=== PATIENT | female | born 1970 | race Caucasian/White ===

== ENCOUNTER 2018-08-23 11:11 | Inpatient (IN) ==
[2018-08-23 12:08] LABS: URINE SOURCE CATH
[2018-08-23 12:10] LABS: ALLEN TEST YES; BE 2.2 mmoll (-3.0-3.0); BLOOD TYPE ARTERIAL; HCO3-(ACT) 26.5 mmoll (20.0-26.0); METHB 0.9 % (0.0-1.5); O2(CT) 20.2 mL/dL (15.0-23.0); PO2(98.6) 97 mmHg (60-100); SAMPLE BLOOD; SAO2 97.9 % (95.0-100.0); THB 15.2 g/dL (11.5-17.4); pH(98.6) 7.36 (7.35-7.45)
[2018-08-23 12:13] LABS: BASO# 0.05 X1000 (0.0-0.2); BASO% 0.5 % (0.0-0.8); EOS# 0.07 X1000 (0.0-0.7); EOS% 0.6 % (0.0-10.0); HEMATOCRIT 44.1 % (37.0-47.0); IMM GRAN# 0.02 X1000 (0.0-0.04); IMM GRAN% 0.2 % (0.0-0.5); LYMPH# 2.73 X1000 (1.2-3.4); LYMPH% 24.8 % (20.5-51.1); MCV 91.1 FL (81-99); MONO% 8.2 % (1.7-9.3); NEUT# 7.26 X1000 (1.4-6.5); NEUT% 65.7 % (42.2-75.2); PLT 276 X1000 (130-400); RBC 4.84 XMIL (4.2-5.4); RDW 13.7 % (11.5-14.5); WBC 11.03 X1000 (4.8-10.8)
[2018-08-23 12:14] LABS: MODALITY CANNULA; PCO2(98.6) 51 mmHg (35-45)
[2018-08-23 12:15] LABS: BILIRUBIN URINE NEGATIVE (NEGATIVE); BLOOD URINE TRACE (NEGATIVE); COLOR YELLOW; GLUCOSE URINE 200 mg/dL (NEGATIVE); KETONE URINE NEGATIVE (NEGATIVE); LEUKOCYTES URINE NEGATIVE (NEGATIVE); NITRITE URINE NEGATIVE (NEGATIVE); PROTEIN URINE NEGATIVE (NEGATIVE); SP GRAVITY URINE 1.005; TURBIDITY URINE CLEAR (CLEAR); UROBILINOGEN URINE NORMAL (NORMAL)
[2018-08-23 12:16] LABS: UR EPITHELIAL CELLS <10 /HPF (<10); URINE BACTERIA NEGATIVE /HPF; URINE RBC <10 /HPF (<10); URINE WBC <10 /HPF (<10)
[2018-08-23 12:29] LABS: AGAP 10; ALB/GLOB RATIO 2.1; ALBUMIN 4.7 g/dL (3.5-5.0); ALKALINE PHOSPHATASE 64 U/L (32-104); BUN 9 mg/dL (8-22); CALCIUM 9.7 mg/dL (8.8-10.2); CHLORIDE 102 mmol/L (98-107); COSMO 283; CREATININE 0.7 mg/dL (0.5-0.9); ESTIMATED GFR > 60; GLUCOSE 218 mg/dL (70-104); GOT 17 U/L (10-30); GPT 16 U/L (10-36); POTASSIUM 4.1 mmol/L (3.5-5.1); SODIUM 139 mmol/L (136-145); TCO2 27 mmol/L (25-35); TOTAL BILIRUBIN 0.24 mg/dL (0.20-1.00); TOTAL PROTEIN 6.9 g/dL (6.3-8.3)
[2018-08-23 12:32] LABS: UR AMPHETAMINES QUAL NONE DETECTED (NONE DETECT); UR BARBITUATES QUAL NONE DETECTED (NONE DETECT); UR BENZODIAZEPIN QUAL NONE DETECTED (NONE DETECT); UR CANNABINOIDS QUAL NONE DETECTED (NONE DETECT); UR COCAINE QUAL NONE DETECTED (NONE DETECT); UR METHADONE QUAL NONE DETECTED (NONE DETECT); UR OPIATES QUAL NONE DETECTED (NONE DETECT); UR OXYCODONE QUAL NONE DETECTED (NONE DETECT); UR PCP QUAL NONE DETECTED (NONE DETECT)
--- NOTE | 2018-08-23 13:19 | EKG Report ---
Test Performed on : 08/23/2018 12:38:33 PM Test Reason : ams Blood Pressure : / mmHG Vent. Rate : 063 BPM Atrial Rate : 063 BPM P-R Int : 164 ms QRS Dur : 098 ms QT Int : 430 ms P-R-T Axes : 035 024 031 degrees QTc Int : 440 ms Normal sinus rhythm. Normal ECG No previous ECGs available Unconfirmed Result
--- NOTE | 2018-08-23 13:36 | Diag Imaging Result Doc PS360 ---
EXAM: CHEST-1 VIEW 08/23/2018 HISTORY: ams TECHNIQUE: AP portable at 1329 COMMENT: There is no evidence of acute cardiac or pulmonary disease. There are no previous studies available for comparison. The inspiration is suboptimal. IMPRESSION: No evidence of acute disease. Electronically signed by Earl Saldana 08/23/2018 1:34 PM
--- NOTE | 2018-08-23 13:47 | Diag Imaging Result Doc PS360 ---
EXAM: CT HEAD W/O CONTRAST INDICATION: ams TECHNIQUE: This exam was performed using automated exposure control, adjustment of mA or kV according to patient size, and/or use of iterative reconstruction technique. COMPARISON: None. FINDINGS: There is no definite acute infarct given the limited sensitivity of CT versus MRI. There is no discrete intracranial mass, mass effect, or intracranial hemorrhage. The surrounding soft tissues and bony structures are essentially unremarkable. IMPRESSION: No evidence of acute intracranial pathology. Electronically signed by Roe Coleman 08/23/2018 1:45 PM
[2018-08-23 15:45] LABS: ACETAMINOPHEN < 1.2 ug/mL (10-30); SALICYLATES < 3.00 mg/dL (3-10)
[2018-08-23] MEDS ORDERED: ZOFRAN IV PRN (16:53)
[2018-08-23] MEDS: NS 1,000 ML IV SCH (17:05)
--- NOTE | 2018-08-23 17:28 | HISTORY AND PHYSICAL ---
PRIMARY CARE PROVIDER: Unknown. CHIEF COMPLAINT: Per mother in the room, altered mental status. HISTORY OF PRESENT ILLNESS: Ms. Robles is a 47-year-old female who was in a rehab center here in [place]. Mother stated that the facility told her that she was normal in the morning. She went to one of her classes and became somewhat unresponsive, so she was brought to the ED. I believe her mother said she has Alzheimer disease, so she could not recall much of her history. She did not know exactly what medication she was on that put her in a drug rehab. She did know it was not an illicit drug, but it was something that was prescribed to her. She states that she did leave yesterday to go to some doctor appointments in [place]; however, she could not remember the names of those doctors. 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 Her mother was quite tearful at the bedside because she could not recall much of the events or her daughter's history. She does have a sister who is en route, who the mother states could give us some more insight, but she thinks that she has high blood pressure. She has not been diagnosed with diabetes, but they have a strong family history of diabetes. Ms. Robles is completely obtunded. She does not respond to sternal chest rub or any loud voice, any type of physical stimuli or painful stimuli. Her pupils are equal and reactive. They are pinpoint, but they do react to light. Her drug screen was completely negative. We are checking an ammonia level. Head CT was negative. She will be admitted to the ICU for close observation. REVIEW OF SYSTEMS: Unable to obtain secondary to the patient being obtunded. PAST MEDICAL HISTORY: Probable hypertension. PAST SURGICAL HISTORY: Unknown. SOCIAL HISTORY: The patient is from [place]. She has per mother abused prescription medication. She cannot recall the name. FAMILY HISTORY: Strong for diabetes mellitus in mother as well as the mother's siblings. ALLERGIES: No known drug allergies. HOME MEDICATIONS: Lisinopril 10 mg p.o. q.a.m. PHYSICAL EXAMINATION: VITAL SIGNS: Temperature is 98 degrees, heart rate 57, respirations 16, blood pressure 176/99, O2 is 100% on 3 L nasal cannula. GENERAL: Ms. Robles is a 47-year-old female who is lying on the stretcher obtunded. She does not respond to tactile or painful stimuli. She does not follow any commands. HEENT: Atraumatic, normocephalic. PERRL. NECK: Supple. Trachea midline. CV: S1, S2 appreciated. No murmurs, gallops or rubs noted. RESPIRATORY: Lung sounds clear. Equal chest excursion. Nonlabored breathing. GI: Appears to be nontender. It is soft. Positive bowel sounds in 4 quadrants. EXTREMITIES: No lower extremity edema. NEUROLOGIC: The patient is obtunded. Again, does not respond to any tactile or painful stimulus. DIAGNOSTIC DATA: Chest x-ray: No evidence of acute disease. EKG: Normal sinus rhythm. Head CT: No evidence of acute intracranial pathology. ASSESSMENT AND PLAN: 1. Presumed metabolic encephalopathy secondary to some type of medication ingested. Again, her drug screen is completely negative. We will monitor closely in the intensive care unit. 2. Known prescription drug abuse. The patient was in a rehab here in [place] for drug abuse. We will consult [facility] when the patient is more appropriate and stable. 3. Hypercarbia. We will continue with supplemental oxygen. Recheck arterial blood gases. 4. Mild hyperglycemia. We will check a hemoglobin A1c. Per mother, there is a strong family history of diabetes. We will continue to check her blood glucoses. 5. Further recommendations to follow physician evaluation, and laboratory and diagnostic data. Dictated by CHANDRA Sandoval for Osvaldo Fuller MD cc: Osvaldo Fuller MD
--- NOTE | 2018-08-23 17:53 | HISTORY AND PHYSICAL ---
HISTORY AND PHYSICAL ADDENDUM: HISTORY: Patient seen and examined by me face to face. All the laboratory, images and vital signs were reviewed. Family members at the bedside. I had an extensive conversation with them about this patient. They agree with my treatment and plan. This is a 47-year-old, female with a past medical history of uterine cancer, status post hysterectomy, drug abuse, especially pain killers, crack and others, alcohol abuse. Apparently, she stopped drinking 6 weeks ago, but as per the sister, she is an alcoholic, tobacco abuse and she is still smoking. Hypertension. Basically has been hospitalized because of altered mental status changes. Apparently, yesterday she was fine, but today she started acting different in the morning. When she arrived to the emergency department, when we evaluated this patient at the emergency department, this patient was completely lethargic. We did a head CT that showed no evidence of acute intracranial pathology. Chest x-ray also is negative. EKG is normal. Laboratory showed mild leukocytosis at 11, pCO2 elevated at 51. Glucose level 218 and negative urine toxicology. Since the patient is lethargic, she was transferred to the ICU. I re-evaluated this patient and now she is waking up, but she is completely confused. She has been asking for her mother which is at the bedside, but she is not able to recognize her and she fell back to sleep right away. Vital signs has been stable. Blood pressure has been between 130s and 140s. We will continue with IV fluids, close monitoring. Since this patient has a strong history of drug abuse, probably this patient had a drug overdose. As per the sister, she used to take a lot of pain killers. Today, she is behaving like a spice- like drug reaction, but it is hard to say because we do not have lab work to corroborate this information. She has been placed on 4-point restraints. We will continue to monitor this patient in the ICU. I agree with the rest of the nurse practitioner's assessment and plan. cc: Osvaldo Fuller MD
[2018-08-23 18:07] LABS: URINE SOURCE CATH
[2018-08-23 18:12] LABS: BILIRUBIN URINE NEGATIVE (NEGATIVE); BLOOD URINE NEGATIVE (NEGATIVE); COLOR YELLOW; GLUCOSE URINE NEGATIVE (NEGATIVE); KETONE URINE NEGATIVE (NEGATIVE); LEUKOCYTES URINE NEGATIVE (NEGATIVE); NITRITE URINE NEGATIVE (NEGATIVE); PROTEIN URINE NEGATIVE (NEGATIVE); TURBIDITY URINE CLEAR (CLEAR); UROBILINOGEN URINE NORMAL (NORMAL)
[2018-08-23 18:13] LABS: UR EPITHELIAL CELLS <10 /HPF (<10); URINE BACTERIA NEGATIVE /HPF; URINE RBC <10 /HPF (<10); URINE WBC <10 /HPF (<10)
[2018-08-24] MEDS: NS 1,000 ML IV SCH ×3 (00:18→20:48)
[2018-08-24 05:05] LABS: ALLEN TEST YES; BE 2.7 mmoll (-3.0-3.0); BLOOD TYPE ARTERIAL; METHB 0.4 % (0.0-1.5); O2(CT) 19.2 mL/dL (15.0-23.0); O2HB 95.3 % (95.0-99.0); PCO2(98.6) 47 mmHg (35-45); PO2(98.6) 80 mmHg (60-100); SAMPLE BLOOD; SAO2 97.9 % (95.0-100.0); THB 14.3 g/dL (11.5-17.4); pH(98.6) 7.39 (7.35-7.45)
[2018-08-24 05:53] LABS: BASO# 0.05 X1000 (0.0-0.2); BASO% 0.6 % (0.0-0.8); EOS# 0.07 X1000 (0.0-0.7); EOS% 0.8 % (0.0-10.0); HEMATOCRIT 41.5 % (37.0-47.0); IMM GRAN# 0.02 X1000 (0.0-0.04); IMM GRAN% 0.2 % (0.0-0.5); LYMPH# 2.65 X1000 (1.2-3.4); LYMPH% 30.6 % (20.5-51.1); MCH 31.3 PG (27-31); MCHC 33.7 g/dL (33-37); MCV 92.8 FL (81-99); MONO# 0.63 X1000 (0.11-0.59); MONO% 7.3 % (1.7-9.3); MPV 10.3 FL (7.4-10.4); NEUT# 5.23 X1000 (1.4-6.5); NEUT% 60.5 % (42.2-75.2); PLT 239 X1000 (130-400); RBC 4.47 XMIL (4.2-5.4); RDW 13.8 % (11.5-14.5); WBC 8.65 X1000 (4.8-10.8)
[2018-08-24 06:20] LABS: AGAP 11; ALB/GLOB RATIO 1.4; ALKALINE PHOSPHATASE 55 U/L (32-104); BUN 11 mg/dL (8-22); CHLORIDE 107 mmol/L (98-107); COSMO 288; CREATININE 0.6 mg/dL (0.5-0.9); ESTIMATED GFR > 60; GLUCOSE 166 mg/dL (70-104); GOT 22 U/L (10-30); GPT 14 U/L (10-36); MAGNESIUM 2.1 mg/dL (1.5-2.7); POTASSIUM 3.8 mmol/L (3.5-5.1); SODIUM 143 mmol/L (136-145); TCO2 25 mmol/L (25-35); TOTAL BILIRUBIN 0.34 mg/dL (0.20-1.00); TOTAL PROTEIN 6.8 g/dL (6.3-8.3)
[2018-08-24 06:21] LABS: HEMOGLOBIN A1C 7.5 % (4.8-6.0)
[2018-08-24 06:45] LABS: FREE T4 1.11 ng/dL (0.93-1.70); TSH 1.07 uIUmL (0.27-4.20)
[2018-08-24 06:48] LABS: MODALITY ROOM AIR
--- NOTE | 2018-08-24 07:14 | EKG Report ---
Test Performed on : 08/24/2018 07:03:00 AM Test Reason : chest pain Blood Pressure : / mmHG Vent. Rate : 078 BPM Atrial Rate : 082 BPM P-R Int : 158 ms QRS Dur : 096 ms QT Int : 416 ms P-R-T Axes : 063 026 026 degrees QTc Int : 474 ms Normal sinus rhythm. with sinus arrhythmia. Normal ECG When compared with ECG of 23-AUG-2018 12:38, (Unconfirmed) No significant change was found Unconfirmed Result
--- NOTE | 2018-08-24 07:33 | Diag Imaging Result Doc PS360 ---
EXAM: CHEST-PORTABLE HISTORY: AMS TECHNIQUE: Portable chest single view COMPARISON: 08/23/2018 FINDINGS: The lungs are well expanded. The heart is not enlarged. The vessels are not distended. There are no infiltrates. No effusion identified. IMPRESSION: Negative exam. Electronically signed by Escobar Oconnor 08/24/2018 7:31 AM
[2018-08-24] MEDS: APRESOLINE IV PRN ×2 (07:39→17:29)
--- NOTE | 2018-08-24 09:13 | PROGRESS NOTE ---
DATE: 08/24/2018 SUBJECTIVE: This patient seems to be more awake today. She is answering some of my questions. She is following commands. She is oriented times x2. She is not oriented to time. As per the patient, she was at the [facility] and then she does not remember what happened. She denied taking any kind of prescribed drugs like narcotics or recreational drugs. Since she looks better, I will start this patient on a healthy heart diet. Her hemoglobin A1c is 7.5. As per the family and the patient, she does not have diabetes but given her hyperglycemia and this result, likely she has diabetes. She is moving all 4 extremities without any problem. She is complaining about not able to focus when she tries to see me or something else. I will decrease the rate of the IV fluids and I will continue with the same management. I will keep the patient in the ICU. WBC is normal today. PCO2 is better but still a little bit high at 47. Glucose level is 166. Calcium level is 8. Thyroid workup is normal. Low folic acid, which will be replaced. She has been in restraints but we will stop those today. OBJECTIVE: Vital Signs: Temperature 98.6 degrees, pulse 82, respiratory rate 21, blood pressure 165/106, oxygen saturation 97% on room air. HEENT: Head normocephalic. No trauma. PERRLA. Neck: Supple. No JVD. No masses. Central trachea. Chest: Clear to auscultation. No wheezing. No rales. Abdomen: Soft, nontender, nondistended. No hepatosplenomegaly. Extremities: No edema. No clubbing. No cyanosis. Neurological Examination: This patient is awake and alert. She is oriented x2. She is not oriented to time. She is following commands and moving all 4 extremities. She is complaining of not able to focus on me or on something else but eye exam looks fine. Laboratory: WBC 8.6, hemoglobin 14, hematocrit 41.5, platelets 239,000. Sodium 143, potassium 3.8, chloride 107, bicarbonate 25, BUN 11, creatinine 0.6, glucose 166, calcium 8. ASSESSMENT AND PLAN: 1. Metabolic versus toxic encephalopathy. As per the patient, she was at the [facility] when she basically blacked out. She does not know what happened. She came in lethargic. She has been placed in the intensive care unit with fluids and monitoring. Today, she looks much better compared with yesterday. No family members at the bedside. She is awake. She is not oriented to time but, as per the patient, she does not remember what happened. She does have a history of drug abuse, alcohol abuse, and tobacco abuse. She denied using any narcotics or illicit drugs. I will monitor this patient for 1 more day. If she is better tomorrow, I will probably do an MRI to rule out a stroke. 2. History of narcotic abuse, drug abuse. This patient has been highly advised against drug use. I will continue with daily cessation education. 3. Tobacco abuse. This patient has been highly advised against tobacco use. I will continue with daily cessation education. 4. History of alcohol abuse. As per the patient's sister, she used to be an alcoholic and apparently she stopped drinking around 6 weeks ago or so. I will continue with daily cessation education. As per the patient, she is not drinking anymore. 5. History of uterine cancer, status post hysterectomy. Aware. 6. Folic acid deficiency. I will replace. 7. Hemoglobin A1c is 7.5 so likely, this patient has diabetes. I will discuss again this with the patient. She seems to be a little bit confused today. Mostly, she is not oriented to time. I will await also family members to be at the bedside to talk about this. CRITICAL CARE TIME: 40 minutes. cc: Osvaldo Fuller MD
[2018-08-24] MEDS: FOLIC ACID PO SCH (14:10)
[2018-08-24] MEDS: TYLENOL PO PRN ×2 (15:18→20:48)
--- NOTE | 2018-08-24 17:27 | Diag Imaging Result Doc PS360 ---
EXAM: MRI BRAIN W/WO CONTRAST INDICATION: r/o stroke COMPARISON: None. FINDINGS: There is no evidence of acute infarct. There are a few tiny foci of T2/FLAIR hyperintensity in the periventricular and subcortical white matter, mainly on the left. This probably represents very early microangiopathy. There is no discrete intracranial mass, mass effect, or intracranial hemorrhage. There is no evidence of abnormal intracranial enhancement. The surrounding soft tissues and bony structures are essentially unremarkable. IMPRESSION: Suggestion of minimal/early white matter microangiopathy. No evidence of acute infarct or other acute pathology. Electronically signed by Roe Coleman 08/24/2018 5:25 PM
[2018-08-24] MEDS ORDERED: PRINIVIL PO ONE (22:38)
[2018-08-25] MEDS: APRESOLINE IV PRN (00:05)
[2018-08-25] MEDS: TYLENOL PO PRN ×2 (01:56→09:22)
[2018-08-25 06:05] LABS: BASO# 0.03 X1000 (0.0-0.2); BASO% 0.4 % (0.0-0.8); EOS# 0.08 X1000 (0.0-0.7); EOS% 1.2 % (0.0-10.0); HEMATOCRIT 40.4 % (37.0-47.0); HEMOGLOBIN 13.6 g/dL (12.0-16.0); LYMPH% 31.8 % (20.5-51.1); MCH 31.1 PG (27-31); MCHC 33.7 g/dL (33-37); MCV 92.4 FL (81-99); MONO# 0.44 X1000 (0.11-0.59); MONO% 6.4 % (1.7-9.3); NEUT# 4.16 X1000 (1.4-6.5); NEUT% 60.2 % (42.2-75.2); PLT 200 X1000 (130-400); RBC 4.37 XMIL (4.2-5.4); RDW 13.6 % (11.5-14.5); WBC 6.91 X1000 (4.8-10.8)
[2018-08-25 06:39] LABS: AGAP 10; ALB/GLOB RATIO 1.6; ALBUMIN 3.8 g/dL (3.5-5.0); ALKALINE PHOSPHATASE 51 U/L (32-104); BUN 11 mg/dL (8-22); CALCIUM 8.5 mg/dL (8.8-10.2); CHLORIDE 109 mmol/L (98-107); COSMO 288; CREATININE 0.5 mg/dL (0.5-0.9); ESTIMATED GFR > 60; GLUCOSE 156 mg/dL (70-104); GOT 18 U/L (10-30); GPT 15 U/L (10-36); POTASSIUM 3.7 mmol/L (3.5-5.1); SODIUM 143 mmol/L (136-145); TCO2 24 mmol/L (25-35); TOTAL BILIRUBIN 0.29 mg/dL (0.20-1.00); TOTAL PROTEIN 6.2 g/dL (6.3-8.3)
[2018-08-25 07:41] VITALS: BP 147/88
[2018-08-25] MEDS: FOLIC ACID PO SCH (09:21)
[2018-08-25] MEDS: NS 1,000 ML IV SCH (09:41)
--- NOTE | 2018-08-26 08:30 | DISCHARGE SUMMARY ---
ADMISSION DATE: 08/23/2018 DISCHARGE DATE: 08/25/2018 PCP: None listed. PROCEDURES AND FINDINGS: 1. Chest x-ray, 08/23/2018, reveals no evidence of acute disease. 2. Head CT, 08/23/2018, reveals no evidence of acute intracranial pathology. 3. Brain MRI, 08/24/2018, reveals suggestion of minimal/early white matter microangiopathy, no evidence of acute infarct or other acute pathology. 4. EKG, 08/23/2018, reveals normal sinus rhythm. DISCHARGE DIAGNOSES: 1. Metabolic versus toxic encephalopathy. Per the patient, she was at the [facility] when she "blacked out." She does not know what happened. She has been in the ICU and received IV fluids and close monitoring. She denied any recreational or narcotic drug use. Her drug screen was negative and head CT and brain MRI negative as well. EKG was normal and troponins negative as well. She is clinically improved now and is more oriented. All other workup including a thyroid was negative. 2. Diabetes mellitus. Her hemoglobin A1c is 7.5. This is a new diagnosis. She has been advised on a diabetic diet and exercise regimen and is to follow up with her PCP outpatient. 3. Tobacco abuse. She has received daily tobacco cessation education. 4. History of drug abuse and alcohol abuse. She has denied any recent illicit drug or alcohol use and her drug screen was negative. She has received daily cessation education. 5. History of uterine cancer status post hysterectomy, aware. 6. Folic acid deficiency. This was replaced. HOSPITAL COURSE: Ms. Robles is a 47-year-old female who apparently became unresponsive at a drug rehab called the [facility]. The patient states that she "blacked out." In the emergency room she was obtunded and did not respond to sternal chest rub, physical or painful stimuli. Her pupils were equal and reactive, although pinpoint. Her drug screen was negative. Her head CT and brain MRI were negative as well. She was admitted to the ICU and received IV fluids and close monitoring. The following day she became more responsive. It was noted that her hemoglobin A1c was 7.5 with mild hyperglycemia. She did not have a known diabetes diagnosis prior, although a strong family history of diabetes is present. Her encephalopathy improved. Other lab work is within normal limits. She is stable for discharge to home. LAST VITAL SIGNS: Temperature 97.9 degrees, heart rate 81, respiratory rate 20, blood pressure 147/88, and O2 saturation 96% on room air. LAST LABS: WBC 6.9, hemoglobin 13.6, hematocrit 40.4, platelets 200,000. ABG shows pH 7.39, pCO2 47, PO2 80, bicarb 27.0. Lactate 0.9. Sodium 143, potassium 3.7, BUN 11, creatinine 0.5, glucose 138, calcium 8.5. Troponin negative, less than 0.01. Folate 6.7. TSH 1.07. Urine negative. DISCHARGE MEDICATIONS: Per Dr. Persaud. 1. Folic acid 1 mg p.o. daily. 2. Hydrochlorothiazide 25 mg p.o. daily. 3. Lisinopril 20 mg p.o. q.a.m. 4. Potassium chloride 10 mEq p.o. daily. DISCHARGE INSTRUCTIONS: Please return to the emergency room for any shortness of breath, chest pain, or worsening of symptoms. The patient is safe for discharge to home. She is to follow up with her PCP at the [facility] within 2 weeks after discharge. Dictated by CHANDRA Duggan for Osvaldo Fuller MD cc: Osvaldo Fuller MD
[2018-08-26] MEDS ORDERED: PRINIVIL PO SCH (09:00)
== END 2018-08-25 13:04 | disposition home or self-care (01) | DRG 70 ==
LOC: ED 11:11 → ICU 16:09 → 4N 08-24 23:46
PROVIDERS: ATTEND Internal Medicine
CPT/HCPCS: 51701; 70450; 70553; 71010; 71045; 80053; 80101; 80196; 80301; 80307; 80324; 80329; 80345; 80346; 80353; 80358; 80361; 80365; 81001; 81025; 82003; 82140; 82607; 82746; 82805; 82948; 83036; 83735; 83992; 84439; 84443; 84484; 85025; 93005; 99285; A9270; A9579; G0431; G0434; G0479; G0480; G6038; G6039; J0360; J2405; J7030; P9612; XXXXX